=== PATIENT | male | born 1965 | race Caucasian/White ===

== ENCOUNTER → 2018-01-16 | Outpatient (REF) | payer OTHER ==
[~2018-01-16] MED LIST: HYDR1TAB PO
--- NOTE | 2018-01-16 08:16 | Diagnostic Imaging Report ---
INDICATION: Screening for MRI AP and lateral views of the orbits reveal no intraorbital metallic foreign body to preclude MRI scan. No paranasal sinus air-fluid level is seen. IMPRESSION: No radiographic evidence of metallic intraorbital foreign body to preclude MRI scan. Dictated by: Dictated on workstation # [id number]
--- NOTE | 2018-01-16 09:32 | Diagnostic Imaging Report ---
PROCEDURE: MRI right joint upper extremity without contrast. TECHNIQUE: Multiplanar, multisequence non contrast-enhanced MRI of the right upper extremity was accomplished. INDICATION: Right shoulder injury with weakness and decreased range of motion There is mild fluid present within the shoulder joint. There is also fluid present within the subacromial subdeltoid bursa. A small amount of increased T2 signal within the distal infraspinatus tendon which may represent partial tear or focal tendinitis. Remainder of the rotator cuff appears to be intact. Long head of the biceps tendon is also intact through the shoulder joint to the anchor. No definite labral disruption is identified although there is mild thickening along the inferior glenohumeral ligament. No bone marrow signal abnormality is seen to indicate fracture. IMPRESSION: There may be small focal tear of the distal infraspinatus tendon with prominent spurring of the acromioclavicular joint which may result in rotator cuff impingement. Fluid in the subacromial subdeltoid bursa may be due to bursitis. Otherwise, no acute internal derangement is identified. Dictated by: Dictated on workstation # [id number]
== END | disposition home or self-care (01) ==
LOC: OCC 07:46
PROVIDERS: ATTEND Nurse Practitioner Family
CPT/HCPCS: 70250; 73221

== ENCOUNTER 2022-05-03 15:39 | Emergency (ER) | payer BC ==
[~2022-05-03] VITALS: Ht 177.8 cm; Wt 138.9 kg
--- NOTE | 2022-05-03 16:10 | ED Upper Extremity ---
General Chief Complaint: Trauma-Non Activation Stated Complaint: FELL HURT R SIDE Nursing Triage Note: PT ARRIVAL TO ER WITH COMPLAINT OF FALL WITH PAIN TO RIGHT SIDE. PATIENT HAS PAIN TO RIGHT HIP, KNEE, ELBOW, WRIST, SHOULDER, AND RIGHT SIDE OF HEAD. PT DENIES LOSS OF CONSCIOUSNESS WITH FALL. PT STATES THAT HE WAS WORKING ON [address], HEEL OF BOOT CAUGHT RUMBLE STRIP ON EDGE OF ROAD CAUSING HIM TO FALL LANDING ON RIGHT SIDE. PAIN AT A 7/10. Source: patient Exam Limitations: no limitations History of Present Illness Date Seen by Provider: May 03, 2022 Time Seen by Provider: 16:03 Initial Comments Patient is a 56-year-old male who presents to with right-sided pain secondary to fall. Patient fell after 2:00 today. He states he works for [employer]. Patient states he fell working along the side of the road. Stumbled on a the median bumps. Fell landing on the right side. Did hit the right side of his head without loss conscious. Not blood thinners. Patient main complaint is right shoulder pain right elbow and right wrist pain. Does have some pain to the right ribs with movement. States he did land on his right leg landing on his thigh. He states he had a pocket knife that was closed. He is reports mild headache but having decreased range of motion to right elbow and right shoulder. Skin abrasion to the right elbow and was placed in gauze before arrival. Up-to-date his tetanus in the past 5 years. Denies of any focal neural deficits, nausea, vomit, diarrhea, middle lower back pain, abdominal pain. Does have some pain with movement of the right leg but states this feels more like tightness. Some pain discomfort the right knee and ankle but able to stand and bear weight without much pain or discomfort. Main complaint is right shoulder, right sided head and rib pain. Denies taking thing for pain Allergies and Home Medications Allergies Coded Allergies: No Known Drug Allergies (Verified Allergy, Mild, 12/19/09) Patient Home Medication List Home Medication List Reviewed: Yes Hydrocodone Bit/Acetaminophen (Vicodin 5-500 Tablet) 1 Each Tablet, 1-2 EACH PO Q4HR PRN Prescribed by: GABRIELLE WICK on 11/14/111906 Review of Systems Constitutional: No chills, No diaphoresis, No malaise, No weakness EENTM: No blurred vision, No double vision, No mouth pain, No throat swelling Respiratory: No cough, No dyspnea on exertion, No orthopnea, No short of breath Cardiovascular: No chest pain Gastrointestinal: No abdominal pain, No diarrhea, No nausea, No vomiting Genitourinary: No decreased output, No discharge Musculoskeletal: joint pain, muscle pain, muscle stiffness Skin: other (skin abrasion) All Other Systems Reviewed Negative Unless Noted: Yes Past Jqpsywg-Vqxeas-Wjuwou Hx Patient Social History Tobacco Use?: No Use of E-Cig and/or Vaping dev: No Substance use?: No Alcohol Use?: Yes Alcohol type: Beer, Hard Liquor Alcohol Frequency: Once in a while Pt feels they are or have been: No Immunizations Up To Date Influenza Vaccine Up-to-Date: Yes; Up-to-Date COVID19 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 oz. kg; 43.00 BMI Method:Stated General Appearance: WD/WN, no apparent distress HEENT: PERRL/EOMI, normal ENT inspection, TMs normal, pharynx normal, other (Right-sided scalp tenderness. Small contusion.) Neck: full range of motion, supple, other (Right-sided cervical paraspinal muscle tenderness. Normal active range of motion. No cervical midline tenderness) Cardiovascular: regular rate, rhythm, no edema, no gallop, no JVD Respiratory: lungs clear, normal breath sounds, no respiratory distress, no accessory muscle use, other (Right-sided lateral rib tenderness) Gastrointestinal: normal bowel sounds, non tender, soft Back: normal inspection, no CVA tenderness, no vertebral tenderness Shoulder: limited ROM (Limited passive range of motion right shoulder. No crepitus or step), pain (Tenderness to palpate right anterior posterior shoulder), soft tissue tenderness (Right posterior and anterior shoulder tenderness. Passive range of motion with pain) Elbow/Forearm: pain (Tenderness to right elbow olecranon with pain with passive range of motion), soft tissue tenderness (Skin abrasion to right forearm), swelling Wrist: Yes pain (Tenderness to the right distal radius and ulna. Normal active range of motion. 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, no motor/sensory deficits, normal mood/affect Progress/Results/Core Measures Results/Orders My Orders Orders - LIZ LAU Ct Head/Cervical Spine Wo (05/03/22 16:01) Ribs, Right 2-3 Views (05/03/22 16:01) Shoulder, Right, 3 Views (05/03/22 16:01) Elbow, Right, 3 Views (05/03/22 16:01) Wrist, Right, 3 Views Or More (05/03/22 16:01) Hydrocodone/Apap 5/325 Tablet (Lortab 5 (05/03/22 16:15) Medications Given in ED Current Medications Medications Dose Ordered Sig/Omi Route Start Time Stop Time Status Last Admin Dose Admin Acetaminophen/ Hydrocodone Bitart 1 ea ONCE ONCE PO 05/03/22 16:15 05/03/22 16:16 DC 05/03/22 16:16 1 EA Vital Signs/I&O 05/03/22 05/03/22 15:57 17:14 Temp 35.8 Pulse 89 81 Resp 20 20 B/P (MAP) 150/85 (106) 143/83 Pulse Ox 97 98 O2 Delivery Room Air Room Air Blood Pressure Mean: 106 Departure Communication (PCP) Patient with a fall at work. Complaining of right-sided pain. Pain appears to be worse right side is head, right shoulder and right side of ribs. Skin abrasion to the right forearm. Cleaned with normal saline and Shur-Clens. Applied Neosporin and bandage. Up-to-date on his tetanus. Discussed wound care at home. Neosporin once or twice daily with wound changes daily. X-ray of the right shoulder right elbow right wrist negative for fracture. Has some mild right-sided rib tenderness. X-ray was negative for obvious fracture or pneumothorax. Small contusion in the right sided lateral head and right side and neck without any cervical, thoracic or midline tenderness of the lumbar spine. CT scan the head and cervical neck was negative for acute fracture. Patient neurologically intact. No neurological red flag findings. GCS 15. Alert and orient x3. Was given dose of pain medication. Patient does have some mild pain in the right thigh but states he is able to walk without any difficulties. Mild tenderness rate knee without swelling bruising or redness. Refused x-ray at this time. Discussed that patient may have pain for the next 1 to 2 weeks. Discussed range of motion exercises and anti-inflammatories. Ice for the next 3 to 4 days. Orthopedic follow-up in 7 to 10 days if pain progress. Impression Primary Impression: Arm pain Additional Impression: Skin abrasion Disposition: HOME, SELF-CARE Condition: Stable Departure-Patient Inst. Decision time for Depature: 17:08 Referrals: BOAZ FUENTES DO (PCP) Primary Care Physician VERNA JON MD Patient Instructions: Shoulder Pain ED Add. Discharge Instructions: Recommend Tylenol or ibuprofen for pain relief. Ice to help with swelling. Recommend Neosporin topical twice a day to the right forearm. Keep the area covered. If any worsening symptoms or pain follow-up with orthopedic in 7 to 10 days. All discharge instructions reviewed with patient and/or family. Voiced understanding. Work/School Note: Work Release Form Date Seen in the Emergency Department: May 03, 2022 Return to Work: May 05, 2022 LIZ LAU May 03, 2022 16:10
[2022-05-03] MEDS ORDERED: HYDROcodone/APAP 5 MG/325 MG (LORTAB) TAB PO ONE (16:15)
--- NOTE | 2022-05-03 16:42 | Diagnostic Imaging Report ---
EXAMINATION: CT head and CT cervical spine without contrast. TECHNIQUE: Multiple contiguous axial images were obtained through the brain and cervical spine without the use of intravenous contrast. Sagittal and coronal reformations through the cervical spine were then performed. All CT scans use one or more of the following dose optimizing techniques: automated exposure control, MA and/or KvP adjustment based on patient size and exam type or iterative reconstruction. HISTORY: Head and neck injury. COMPARISON: None available. FINDINGS: The crandall-white matter differentiation is normal. No mass effect or midline shift. The ventricles are normal in size and configuration. Basilar cisterns are patent. There are no intra- or extra-axial fluid collections. There is no intracranial hemorrhage. The orbits are normal. Paranasal sinuses are normal. Mastoid air cells are clear. No soft tissue abnormality is seen. No osseous lesions or fractures are seen. The alignment of the cervical spine is normal. No fracture is seen. Vertebral body heights are normal. The craniocervical junction is normal. There is mild degenerative disease in the cervical spine. There is no spinal canal stenosis. No soft tissue abnormality is seen in the neck. Limited views of the superior thorax are normal. IMPRESSION: 1. No acute intracranial abnormality. 2. No cervical spine fracture. Dictated by: Dictated on workstation # [id number]
--- NOTE | 2022-05-03 16:50 | Diagnostic Imaging Report ---
INDICATION: Fall with right wrist pain. FINDINGS: Three views. Carpal bones show good alignment. Radiocarpal joint appears normal. There are no fractures. No dislocation. No radiopaque foreign bodies. IMPRESSION: Normal right wrist. Dictated by: Dictated on workstation # [id number]
--- NOTE | 2022-05-03 16:53 | Diagnostic Imaging Report ---
INDICATION: Fall with right shoulder pain. FINDINGS: Three views. The glenohumeral joint and AC joint are in good alignment. Articulating surfaces are smooth of the glenohumeral joint. Mild hypertrophic changes of the AC joint. There are no fractures. No soft tissue calcification about the shoulder. IMPRESSION: Mild arthritic changes of the AC joint with no acute abnormalities. Dictated by: Dictated on workstation # [id number]
--- NOTE | 2022-05-03 16:53 | Diagnostic Imaging Report ---
EXAMINATION: Right ribs. EXAM DATE: 05/03/2022 4:47 PM COMPARISON: None available. HISTORY: Right sided lateral rib pain TECHNIQUE: Three views. FINDINGS: There is no acute fracture, dislocation or destructive osseous process. The joint spaces are normal. The soft tissues are normal. IMPRESSION: No acute osseous abnormality. Dictated by: Dictated on workstation # [id number]
--- NOTE | 2022-05-03 16:56 | Diagnostic Imaging Report ---
INDICATION: Right-sided pain. EXAMINATION: Right elbow, 05/03/2022. FINDINGS: Three views of the elbow. There is posterior spurring along the olecranon process. No fractures or dislocations appreciated. No joint effusion. There is spurring at the medial and lateral epicondyles consistent with likely chronic epicondylitis. IMPRESSION: 1. Chronic findings with no acute osseous abnormality. Dictated by: Dictated on workstation # [id number]
[2022-05-03 17:14] VITALS: BP 143/83
== END 2022-05-03 17:25 | disposition home or self-care (01) ==
LOC: EDUNIT# 15:39 → ER 15:45
DX: S00.03XA Contusion of scalp, initial encounter (principal); S50.811A Abrasion of right forearm, initial encounter; M25.511 Pain in right shoulder; R07.81 Pleurodynia; M79.651 Pain in right thigh; M25.561 Pain in right knee; M54.2 Cervicalgia; M25.531 Pain in right wrist; W18.09XA Striking against other object with subsequent fall, initial encounter; Y92.410 Unspecified street and highway as the place of occurrence of the external cause
CPT/HCPCS: 70450; 71100; 72125; 73030; 73080; 73110

== ENCOUNTER → 2022-05-25 | Outpatient (CLI) | payer BC | LOC: CARD 12:00 | PROVIDERS: ATTEND Internal Medicine Cardiovascular Disease | DX: I51.7 Cardiomegaly (principal) | CPT/HCPCS: 93306 ==